=== PATIENT | female | born 1950 | race Caucasian/White ===

== ENCOUNTER 2021-11-21 04:58 | Emergency (ER) | payer MEDICARE ==
[~2021-11-21] VITALS: Ht 177.8 cm; Wt 60.0 kg
[2021-11-21 05:45] LABS: HEMATOCRIT 39.6 % (37.0-47.0); HEMOGLOBIN 12.7 g/dL (12.5-16.0); MEAN CELL VOLUME 95 fl (78-100); MEAN CORPUSCULAR HEMOGLOBIN 31 pg (27-31); MEAN CORPUSCULAR HGB CONC 32 g/dL (33-37); MEAN PLATELET VOLUME 9.8 fl (7.4-10.4); PLATELET COUNT 205 K/mm3 (130-400); RED BLOOD COUNT 4.15 M/mm3 (4.10-5.30); WHITE BLOOD COUNT 10.6 K/mm3 (4.8-10.8)
[2021-11-21 05:48] LABS: ALBUMIN 3.9 g/dL (3.4-4.8); POTASSIUM 3.6 mmol/L (3.5-5.1)
[2021-11-21 05:49] LABS: CALCIUM 9.1 mg/dL (8.3-10.5)
[2021-11-21 05:51] LABS: TOTAL PROTEIN 6.8 g/dL (6.2-8.1)
[2021-11-21 05:52] LABS: TOTAL BILIRUBIN 0.7 mg/dL (0.2-1.2)
[2021-11-21 05:54] LABS: BAND 11 % (0-10); LYMPHOCYTE 3 % (20-51); MONOCYTE 4 % (3-10); NEUTROPHILS 81 % (42-75)
[2021-11-21] MEDS ORDERED: ZOFRAN ODT4 MG PO (06:13)
[2021-11-21 06:35] LABS: PH-URINE 5.5 (5.0 - 8.0); URINE APPEARANCE CLEAR; URINE BILIRUBIN NEGATIVE (NEGATIVE); URINE BLOOD TRACE (NEGATIVE); URINE COLOR YELLOW; URINE GLUCOSE NEGATIVE (NEGATIVE); URINE KETONE NEGATIVE (NEGATIVE); URINE LEUKOCYTE ESTERASE TRACE (NEGATIVE); URINE NITRATE NEGATIVE (NEGATIVE); URINE PROTEIN(semi-quant) TRACE (NEGATIVE); URINE UROBILINOGEN NORMAL (NORMAL); URINE WBC 0-1 /hpf (0-3)
[2021-11-21 06:55] VITALS: BP 99/54
== END 2021-11-21 07:39 | disposition home or self-care (01) ==
LOC: ED 04:58
PROVIDERS: Internal Medicine
DX: B34.9 Viral infection, unspecified (principal); Z20.822 Contact with and (suspected) exposure to COVID-19